=== PATIENT | female | born 1990 ===

== ENCOUNTER 2017-02-12 16:43 | Emergency (ER) | payer OTHER ==
[2017-02-12] MEDS ORDERED: ACETAMINOPHEN 325 MG TABLET PO ONE ×2 (17:12→17:17)
[2017-02-12 17:29] LABS: INFLUENZA A/B INF A & B NEGATIVE; RAPID STREP SCRN CUL IF NEG NEGATIVE
[2017-02-12] MEDS ORDERED: OSELTAMIVIR PHOSPHATE 75 MG CAPSULE PO ONE (18:21)
--- NOTE | 2017-02-12 18:24 | ER NURSING DOCUMENTATION ---
Nurse's Notes [facility] Name:Becky Perera Age:26 yrs Sex:Female :1990 Arrival Date:02/12/2017 Time:16:43 Bed4 Private MD: Diagnosis:Influenza Presentation: 02/12 17:01 Presenting complaint: Patient states: Pt with severe throat pain and fever since early il this am States has difficulty swallowing meds without spitting them right back up. Transition of care: Home. 17:01 Acuity: MEAGHAN 3 il 17:01 Method Of Arrival: Private Vehicle il Triage Assessment: 17:12 General: Appears uncomfortable, well developed, well nourished, Behavior is ma cooperative. Pain: Complains of pain in soft palate, uvula, left aspect of posterior pharynx and right aspect of posterior pharynx. Derm: Skin is dry, Skin temperature is hot. Historical: - Home Meds: 1. ibuprofen 800 mg oral tab 1 tab (Last dose: 02/12/2017 14:00) 2. Thyroid - PMHx: HYPOTHYROIDISM; - PSHx: HYSTERECTOMY; TONSILLECTOMY; THYROIDECTOMY; [place] teeth; - Tetanus: < 10 years. - Ebola Screening: : No symptoms or risks identified at this time. . - Immunization history: Flu Vaccine unknown. - Social history: Smoking status: Patient states was never smoker of tobacco. Patient uses alcohol but reports only rare drinking. Screenin:12 Infectious Disease Risk None. Abuse screen: Denies threats or abuse. Nutritional ma screening: No deficits noted. Assessment: 17:13 Respiratory: Respiratory effort is even, unlabored, il 18:22 Reassessment: Patient states feeling better. Patient states symptoms have improved. ma Patient appears in no apparent distress at this time. Vital Signs: 17:13 BP 123 / 66; Pulse 108; Resp 20; Temp 102.1; Pulse Ox 90% on R/A; Weight 95.25 kg; ma Height 5 ft. 7 in. (170.18 cm); Pain 8/10; 18:21 Temp 100.8; ma 17:13 Body Mass Index 32.89 (95.25 kg, 170.18 cm) il ED Course: 16:45 Patient arrived in ED. ama 17:01 Angela Stewart, RN is Primary Nurse. ma 17:09 Triage completed. ma 17:13 Valuables Remains with patient Patient has correct armband on for positive ma identification. Bed in low position. Call light in reach. Side rails up X 1. Warm blanket given. 17:51 Garrison Eller MD is Attending Physician. cd 17:56 Attending Physician role handed off by Garrison Eller MD tl1 17:56 Poncho Patel MD is Attending Physician. tl1 Administered Medications: 17:14 Drug: Acetaminophen 975 mg; Route: PO; ma 18:22 Follow up: Response: Temperature is decreased ma 18:22 Drug: Tamiflu 75 mg; Route: PO; ma 18:22 Follow up: Response: Medication administered at discharge. ma Outcome: 18:11 Discharge ordered by . tl1 18:23 Discharged to home ma 18:23 Condition: stable 18:23 Discharge instructions given to patient, Instructed on discharge instructions, follow up and referral plans. medication usage, no drinking with medication, no driving heavy equipment, Demonstrated understanding of instructions, medications, Prescriptions given X 3. 18:23 Patient left the ED. ma Signatures: Angela Stewart, RN RN Garrison Anton MD MD cd Averdick, Andrew, Reg Reg Poncho Pena MD MD tl1
--- NOTE | 2017-02-14 18:23 | ER PHYSICIAN DOCUMENTATION ---
Physician Documentation [facility] Name:Becky Perera Age:26 yrs Sex:Female :1990 Arrival Date:02/12/2017 Time:16:43 Bed4 Private MD: Poncho Razo Disposition: 02/12 18:37 Chart complete. tl1 Disposition: 02/12/17 18:11 Discharged to Home/Self Care. Impression: Influenza. - Condition is Good. - Discharge Instructions: INFLUENZA (Adult). - Prescriptions for [place] 5- 325 mg Oral Tablet - take 1 tablet by ORAL route every 6 hours As needed; 6 tablet. Tamiflu 75 mg Oral Capsule - take 1 capsule by ORAL route every 12 hours for 5 days; 10 capsule. Zofran 4 mg Oral Tablet - take 1-2 tablet by ORAL route every 4-6 hours As needed; 10 tablet. - Medical Reconciliation form form. - Follow up: Private Physician; When: 4- 6 days; Reason: Recheck today's complaints, Continuance of care. - Problem is new. - Symptoms have improved. HPI: 17:00 This 26 yrs old Unknown Female presents to ER via Private Vehicle with complaints of tl1 Cough, Fever, Sore Throat, Nausea/Vomiting. 17:00 She was well until last night when she had the abrupt onset of a fairly severe cough, tl1 ST, fever to 102, malaise and myalgias. No rash or UTI symptoms. She has vomited about 5 times but has had no diarrhea.. Historical: - Home Meds: 1. ibuprofen 800 mg oral tab 1 tab (Last dose: 02/12/2017 14:00) 2. Thyroid - PMHx: HYPOTHYROIDISM; - PSHx: HYSTERECTOMY; TONSILLECTOMY; THYROIDECTOMY; [place] teeth; - Tetanus: < 10 years. - Ebola Screening: : No symptoms or risks identified at this time. . - Immunization history: Flu Vaccine unknown. - Social history: Smoking status: Patient states was never smoker of tobacco. Patient uses alcohol but reports only rare drinking. ROS: 17:30 Constitutional: Positive for body aches, chills, fatigue, fever, malaise. tl1 17:30 ENT: Positive for sinus congestion, sore throat. 17:30 Respiratory: Positive for cough, Negative for orthopnea, wheezing. 17:30 Abdomen/GI: Positive for vomiting, Negative for abdominal pain, diarrhea, constipation. 17:30 Skin: Negative for rash. 17:30 All other systems are negative. Exam: 17:30 Constitutional: The patient appears alert, awake, non-toxic, well developed, well tl1 groomed, well nourished, in obvious distress, mildly distressed, restless, uncomfortable. 17:30 Head/face: face flushed. 17:30 Eyes: Exam is negative for acute changes. 17:30 ENT: External ear(s): are unremarkable, Mouth: is normal, Posterior pharynx: Tonsils: are normal in appearance, Uvula: normal, midline, erythema, that is moderate. 17:30 Neck: ROM/movement: is normal, Lymph nodes: no appreciated lymphadenopathy. 17:30 Cardiovascular: Rate: tachycardic, Rhythm: regular, Heart sounds: normal, no murmur, no rub, no gallop, Edema: is not appreciated. 17:30 Respiratory: the patient does not display signs of respiratory distress, Respirations: normal, Breath sounds: are normal, no rales, rhonchi, no stridor, no wheezing. 17:30 Abdomen/GI: Inspection: abdomen appears normal, Palpation: abdomen is soft and non-tender. 17:30 : CVA tenderness, is absent. 17:30 Skin: Exam negative for acute changes. 17:30 Neuro: Exam negative for acute changes. Vital Signs: 17:13 BP 123 / 66; Pulse 108; Resp 20; Temp 102.1; Pulse Ox 90% on R/A; Weight 95.25 kg; ma Height 5 ft. 7 in. (170.18 cm); Pain 8/10; 18:21 Temp 100.8; ma 17:13 Body Mass Index 32.89 (95.25 kg, 170.18 cm) id MDM: 17:57 Patient medically screened. tl1 18:00 Differential diagnosis: viral Infection, influenza, strep. Data reviewed: vital signs, tl1 nurses notes, lab test result(s), flu, RST; BOTH NEGATIVE. Counseling: I had a detailed discussion with the patient and/or guardian regarding: the historical points, exam findings, and any diagnostic results supporting the discharge/admit diagnosis, lab results, the need for outpatient follow up, to return to the emergency department if symptoms worsen or persist or if there are any questions or concerns that arise at home. ECG:. Response to treatment: the patient's symptoms have mildly improved after treatment, and as a result, I will discharge patient. 02/12 17:30 Order name: INFLUENZA A/B; Complete Time: 17:51 EDMS 02/12 17:30 Order name: RAPID STREP SCRN CUL IF NEG; Complete Time: 17:51 EDMS Dispensed Medications: 17:14 Drug: Acetaminophen 975 mg; Route: PO; ma 18:22 Follow up: Response: Temperature is decreased ma 18:22 Drug: Tamiflu 75 mg; Route: PO; ma 18:22 Follow up: Response: Medication administered at discharge. ma Signatures: Angela Stewart RN RN ma Pavlish, Lena, RN RN lp Daley, Chris, MD MD cd Leigh, Tom, MD MD tl1
== END 2017-02-12 18:24 | disposition home or self-care (01) ==
LOC: ER 16:43
DX: J11.1 Influenza due to unidentified influenza virus with other respiratory manifestations (principal); R11.2 Nausea with vomiting, unspecified
CPT/HCPCS: 86403; 87449; 99283